=== PATIENT | male | born 1970 | race Caucasian/White ===

== ENCOUNTER → 2021-05-03 | Outpatient (CLI) | payer MEDICARE ==
[~2021-05-03] MED LIST: ASPIRIN EC81 MG PO; CLOPIDOGREL75 MG PO; COREG6.25 MG PO; ISOSORBIDE MONO30 MG PO; LIPITOR80 MG PO; MEDROL DOSEPAK 24 MG PO; OMNICEF 300 MG300 MG PO; PAXIL10 MG PO; SEROQUEL TAB 2525 MG PO; SYMBICORT 160-1 INHA INH; VENTOLIN HFA 66.7 GM INH; ZESTRIL 40 MG T40 MG PO
== END ==
LOC: KOH-I 12:12
DX: R06.02 Shortness of breath (principal); I25.10 Atherosclerotic heart disease of native coronary artery without angina pectoris
CPT/HCPCS: 71046

== ENCOUNTER → 2021-07-07 | Outpatient (CLI) | payer MEDICARE ==
[~2021-07-07] MED LIST changes: +IPRAT-ALBUT 0.5-3 ML INH; +SPIRIVA HANDIH18 MCG INH
== END ==
LOC: NM 09:00 → ECHO 10:26
DX: I20.9 Angina pectoris, unspecified (principal); R07.9 Chest pain, unspecified; I10 Essential (primary) hypertension; R00.2 Palpitations; I08.1 Rheumatic disorders of both mitral and tricuspid valves; I27.20 Pulmonary hypertension, unspecified
CPT/HCPCS: ECHO; 78452; 93017; 93306; A9502

== ENCOUNTER → 2021-07-08 | Outpatient (CLI) | payer MEDICARE ==
[2021-07-08 11:51] LABS: BUN/CREATININE RATIO 9 (0-10)
[2021-07-08 12:34] LABS: HEMOGLOBIN 15.9 gm/dl (14.0-17.5); RED BLOOD COUNT 4.98 M/UL (4.20-5.50); WHITE BLOOD COUNT 11.7 K/UL (4.5-11.0)
== END ==
LOC: LAB 11:01
PROVIDERS: Internal Medicine Interventional Cardiology
DX: I25.119 Atherosclerotic heart disease of native coronary artery with unspecified angina pectoris (principal); R94.39 Abnormal result of other cardiovascular function study; F41.9 Anxiety disorder, unspecified; R07.9 Chest pain, unspecified; E78.00 Pure hypercholesterolemia, unspecified; R06.02 Shortness of breath; F32.A Depression, unspecified; Z51.81 Encounter for therapeutic drug level monitoring
CPT/HCPCS: 36415; 80048; 85025; 85610; 85730; 93005

== ENCOUNTER 2021-07-12 06:37 | Outpatient (CLI) | payer MEDICARE ==
[~2021-07-12] VITALS: Ht 180.3 cm; Wt 98.9 kg
[~2021-07-12 06:37] MED LIST changes: -IPRAT-ALBUT 0.5-3 ML INH; -SPIRIVA HANDIH18 MCG INH
[2021-07-12] MEDS ORDERED: IPRAT-ALBUT 0.5-3 ML INH (07:32)
[2021-07-12] MEDS ORDERED: SPIRIVA HANDIH18 MCG INH (07:32)
[2021-07-12 19:16] LABS: BUN/CREATININE RATIO 14 (0-10)
[2021-07-12 19:26] LABS: HEMOGLOBIN 14.2 gm/dl (14.0-17.5); RED BLOOD COUNT 4.47 M/UL (4.20-5.50)
[2021-07-13 03:25] LABS: HEMOGLOBIN 14.7 gm/dl (14.0-17.5); RED BLOOD COUNT 4.61 M/UL (4.20-5.50)
[2021-07-13 03:28] LABS: WHITE BLOOD COUNT 12.6 K/UL (4.5-11.0)
[2021-07-13 03:55] LABS: BUN/CREATININE RATIO 13 (0-10)
--- NOTE | 2021-07-13 06:31 | NUR ---
LATE ENTRY 2300 CATH SITE BRUISED, PULSES WNL, CAP REFILL <3 SECONDS
--- NOTE | 2021-07-13 06:32 | NUR ---
LATE ENTRY 0300 CATH SITE BRUISED, EDEMA, PULSE WNL, CAP REFILL <3 SECONDS
== END 2021-07-13 13:31 | disposition home or self-care (01) ==
LOC: CATH 06:37 → PROG CARE 11:24 → CATH 11:24 → PROG CARE 11:49 → CATH 07-13 13:31
PROVIDERS: Internal Medicine Interventional Cardiology
DX: I25.118 Atherosclerotic heart disease of native coronary artery with other forms of angina pectoris (principal); I10 Essential (primary) hypertension; I25.2 Old myocardial infarction; E78.5 Hyperlipidemia, unspecified; J44.9 Chronic obstructive pulmonary disease, unspecified; Z20.822 Contact with and (suspected) exposure to COVID-19; Z95.5 Presence of coronary angioplasty implant and graft; K21.9 Gastro-esophageal reflux disease without esophagitis; E78.00 Pure hypercholesterolemia, unspecified; M19.90 Unspecified osteoarthritis, unspecified site; F17.210 Nicotine dependence, cigarettes, uncomplicated; F41.9 Anxiety disorder, unspecified; F31.9 Bipolar disorder, unspecified; Z79.82 Long term (current) use of aspirin; Z79.899 Other long term (current) drug therapy; Z72.89 Other problems related to lifestyle; Z82.49 Family history of ischemic heart disease and other diseases of the circulatory system
CPT/HCPCS: 36415; 80048; 82550; 82553; 84484; 85027; 85347; 92978; 92979; 93308; 94640; 94664; 94760; 97162; 99152; 99153; C1725; C1753; C1769; C1874; C1887; C1894; C9600; J0153; J0360; J0461; J1644; J2250; J2270; J2370; J2405; J2930; J3010; J3246; J7030; Q9967; U0002